=== PATIENT | female | born 1995 | race Caucasian/White ===

== ENCOUNTER 2019-08-07 13:23 | Outpatient (RCR) | payer BC, SELFPAY ==
--- NOTE | 2019-08-07 13:30 | PC.NURSE ---
IN 1250 OUT 1320 HISTORY: Pt. delivered at 39 weeks. had no complications after delivery. Mother had no complications after delivery. Infant is now 6 days old. Infant appears to be well cared for. has been seen by ICP as scheduled. Infant last seen by ICP at 1 week. Mother reports: She did not want to breastfeed while in the hospital. Mother's milk has now come in and mother has been attempting infant to breast with pain. Mother will pump 2-3 oz every three hours, and does not want to continue to pump and bottle feed. Mother wishes: to breastfeed. Currently at 6 wets per day and 2-3 yellow seedy stools per day. weight: 8#3 Discharge weight: 7#13 Last Weight: 7#6 Pre feeding weight: 3368 Post feeding weight: 3386 in 10 minutes full, mother bottle fed 3 oz before appointment. OBSERVATION: Reviewed feeding cues, frequencies, duration of feedings, feeding elimination flow sheet, and signs of adequate intake. Demonstrated stimulation techniques to wake infant for feeding. Requested mother put infant to breast has she has been at home. Mother used cradle allowing to find nipple and latch shallow. Assisted with to breast. Reviewed positioning/alignment in cross cradle, holding breast in U hold and guided asymmetrical latch on. Discussed rational for each. was able to latch correctly with first attempt. nursed eagerly, with steady draws and frequent swallowing noted. Reviewed signs of a correct latch, effective nursing and suck swallow ratio. Infant was able to maintain latch without discomfort to mother. Nipple care reviewed. Demonstrated how to adjust latch more deeply while infant is feeding. Reviewed football positioning/and C hold. PLAN: Mother will follow above feeding plan using techniques for deeper latch. Mother will put to breast each feeding and offer supplements for the next few feedings. Discussed when to decrease supplementation and when to discontinue. Stressed to feed on demand and supplement as needed, and keep accurate records of output. Mother will call with further questions or concerns.
== END 2019-10-16 10:43 | disposition home or self-care (01) ==
LOC: ANHOBOP 13:23
PROVIDERS: PCP Emergency Medicine; Visit Provider Pediatrics
DX: Z39.1 Encounter for care and examination of lactating mother (principal)
CPT/HCPCS: 99212; G0463

== ENCOUNTER 2021-11-25 16:21 | Outpatient (CLI) | payer BC, SELFPAY ==
[2021-11-25 17:10] LABS: Beta HCG Quantitative 3.34 mIU/ML
== END 2021-11-25 16:22 | disposition home or self-care (01) ==
PROVIDERS: PCP Emergency Medicine; Visit Provider Advanced Practice Midwife
DX: O20.0 Threatened abortion (principal)
CPT/HCPCS: 36415; 84702

== ENCOUNTER 2021-11-26 13:33 | Emergency (ER) | payer BC, SELFPAY ==
--- NOTE | ~2021-11-26 | US_ITS ---
EXAMINATION: US OB <=14 wk fetus w TV INDICATION: 5 weeks , bleeding TECHNIQUE: Sonography of the pelvis was performed by transabdominal and transvaginal techniques. COMPARISON: None. RESULT: Uterus: - Orientation: Anteverted - Size: 8.9 x 3.6 x 4.9 cm - Myometrium: homogeneous echogenicity Gestation: - Intrauterine gestational sac: Not seen - Embryo: Not seen Right ovary: - Size : 2.6 x 1.4 x 1.7 cm - Normal sonographic appearance with physiologic follicles. Left ovary: - Size: 2.1 x 1.2 x 2.2 cm - Normal sonographic appearance with physiologic follicles. Pelvis free fluid: None. IMPRESSION: No visible intrauterine gestational sac, which may be normal in early . Spontaneous and ectopic are not excluded. Serial beta hCGs are recommended. Reviewed, dictated and finalized at location K.
[2021-11-26 13:36] VITALS: BP 127/70; PULSE 68; RESP 16; TEMP 36.4; O2SAT 100
[2021-11-26 14:16] LABS: Basophils Absolute Auto 0.1 K/mm3 (0.0-0.1); Basophils Percent Auto 0.5 % (0.2-1.2); Eosinophils Absolute Auto 0.5 K/mm3 (0-0.3); Eosinophils Percent Auto 4.6 % (0-4.4); Hematocrit 42.2 % (37.0-47.0); Hemoglobin 13.5 g/dL (12.0-15.0); Immature Granulocyte Absolute 0.02 K/mm3 (0.00-0.031); Immature Granulocyte Percent A 0.2 % (0-0.5); Lymphocytes Absolute Auto 3.43 K/mm3 (0.9-3.2); Lymphocytes Percent Auto 31.2 % (18.3-44.2); Mean Corpuscular Hemoglobin 26.8 pg (26-34); Mean Corpuscular Volume 83.9 fl (80-100); Monocytes Absolute Auto 0.6 K/mm3 (0.1-0.6); Monocytes Percent Auto 5.2 % (2.6-8.5); Neutrophils Absolute Auto 6.4 K/mm3 (1.3-6.7); Neutrophils Percent Auto 58.3 % (45.5-73.1); Platelet Count Result 272 k/mm3 (150-375); Red Blood Count 5.03 M/mm3 (4.2-5.4); Red Cell Distribution Width 14.2 % (11.5-14.5)
--- NOTE | 2021-11-26 14:35 | ED.PREGNANCY ---
HPI - General Chief complaint: Vaginal Bleeding <Archana Aguilar PA-C - Last Filed: 11/26/21 15:44> Stated complaint: vaginal bleeding <Archana Aguilar PA-C - Last Filed: 11/26/21 15:44> Time Seen by Provider: 11/26/21 13:47 <Archana Aguilar PA-C - Last Filed: 11/26/21 15:44> Source: patient <KIA Millan Last Filed: 11/26/21 15:44> Mode of arrival: ambulatory <Archana Aguilar PA-C - Last Filed: 11/26/21 15:44> Limitations: no limitations <Archana Aguilar PA-C - Last Filed: 11/26/21 15:44> History of Present Illness HPI Narrative: This is a 26 year old, , about 5 weeks , that presents to the ER for vaginal bleeding. Ongoing since yesterday. Reports bleeding worsened today and she became a little dizzy, which prompted her to be seen. Her OB is Dr. Landon. Denies fever, vomiting or dysuria. <Archana Aguilar PA-C - Last Filed: 11/26/21 15:44> Related Data Home medications: Home Medications Medication Instructions Recorded Confirmed No Home Medications 08/01/19 08/01/19 <Archana Aguilar PA-C - Last Filed: 11/26/21 15:44> Allergies/Adverse reactions: Allergies Allergy/AdvReac Type Severity Reaction Status Date / Time No Known Allergies Allergy Unknown Unverified 11/26/21 14:01 <Archana Aguilar PA-C - Last Filed: 11/26/21 15:44> Review of Systems Review of Systems: CONSTITUTIONAL: Denies fever GASTROINTESTINAL: Reports pelvic cramping. Denies nausea, vomiting GENITOURINARY: Denies dysuria or hematuria. <Archana Aguilar PA-C - Last Filed: 11/26/21 15:44> All systems reviewed & are unremarkable except as noted in HPI and below <KIA Millan Last Filed: 11/26/21 15:44> [facility] Past Medical History Medical History: Medical History (Updated 11/26/21 @ 15:20 by Archana Aguilar PA-C) No active medical problems <Archana Aguilar PA-C - Last Filed: 11/26/21 15:44> Social History Social History: Social History Smoking status: Never smoker Second hand tobacco smoke exposure: No Gender identity (if verbalized by the patient): Female Spiritual care concerns: No <Archana Aguilar PA-C - Last Filed: 11/26/21 15:44> Exam Narrative: GENERAL: Well-appearing, well-nourished, and in no acute distress. HEAD: Normocephalic, atraumatic. EYES: EOMI. CHEST: Clear to auscultation. No respiratory distress. No wheezes rales or rhonchi HEART: Regular rate and rhythm. No murmur heard. Normal peripheral pulses. ABDOMEN: Soft, nontender, nondistended, normal active bowel sounds. EXTREMITIES: Normal range of motion. No edema. SKIN: Warm, dry, no rash. NEURO: No focal deficits. Alert and oriented x3. PSYCH: Normal mood and affect PELVIC: Normal external genitalia. Normal appearing cervix. Small amount of dark red blood in the vaginal vault <Archana Aguilar PA-C - Last Filed: 11/26/21 15:44> Course LINE SERVER/PA Physician Supervision For this patient encounter, I reviewed the LINE SERVER or PA documentation, treatment plan, and medical decision making <Dionicio Chavez MD - Last Filed: 11/26/21 16:00> Consultations Consultation #1: Spoke with Dr. Landon about patient and workup who will follow up in clinic <Archana Aguilar PA-C - Last Filed: 11/26/21 15:44> Date: 11/26/21 <Archana Aguilar PA-C - Last Filed: 11/26/21 15:44> Time: 15:30 <Archana Aguilar PA-C - Last Filed: 11/26/21 15:44> Vital Signs Vital signs: Vital Signs Temperature 97.6 F 11/26/21 13:36 Pulse Rate 68 11/26/21 13:36 Respiratory Rate 16 11/26/21 13:36 Blood Pressure 127/70 11/26/21 13:36 Pulse Oximetry 100 04/30/22 13:36 Temperature 97.6 F 11/26/21 13:36 Pulse Rate 65 11/26/21 15:55 Respiratory Rate 16 11/26/21 15:55 Blood Pressure 128/74 11/26/21 15:55 Pulse Oximetry 100 11/26/21 15:55 <Archana Aguilar PA-C - Last Filed: 11/26/21 15:44> Vital Signs Temper
[2021-11-26 14:43] LABS: Beta HCG Quantitative < 2.39 mIU/ML
[2021-11-26 15:55] VITALS: BP 128/74; PULSE 65; RESP 16; O2SAT 100
== END 2021-11-26 15:56 | disposition home or self-care (01) ==
PROVIDERS: Physician Assistant; Emergency Provider Emergency Medicine; PCP Emergency Medicine
DX: O03.9 Complete or unspecified spontaneous abortion without complication (principal)
CPT/HCPCS: 36415; 76801; 76817; 81025; 84702; 85025; 85461; 99284

== ENCOUNTER 2022-08-19 13:13 | Emergency (ER) | payer BC, SELFPAY ==
--- NOTE | 2022-08-19 16:14 | PC.NURSE ---
LWBS D/T WAIT TIME
== END 2022-08-19 16:28 | disposition left against medical advice (07) ==
PROVIDERS: PCP Emergency Medicine
DX: Z53.21 Procedure and treatment not carried out due to patient leaving prior to being seen by health care provider (principal)
CPT/HCPCS: 99199

== ENCOUNTER 2022-08-19 18:10 | Emergency (ER) | payer BC, SELFPAY ==
[2022-08-19 18:32] VITALS: BP 131/87; PULSE 89; RESP 18; TEMP 36.7; O2SAT 100
--- NOTE | 2022-08-19 20:59 | PC.NURSE ---
Patient approached the nurses station and informed typewriter aligner that she did not want to wait anymore. Patient was alert and ambulatory upon leaving the ED.
== END 2022-08-19 20:59 | disposition left against medical advice (07) ==
PROVIDERS: PCP Emergency Medicine
DX: Z53.21 Procedure and treatment not carried out due to patient leaving prior to being seen by health care provider (principal)
CPT/HCPCS: 99199

== ENCOUNTER → 2022-08-23 10:22 | Outpatient (CLI) | payer BC, SELFPAY ==
--- NOTE | ~2022-08-23 | CT_ITS ---
EXAMINATION: CT brain wo/w con DATE: 08/23/2022 10:55 INDICATION: Dizziness and giddiness. Headache. TECHNIQUE: Computed tomography (CT) of the head was performed without and with 100 mL Omnipaque 350 i ntravenous contrast. The mA was adjusted according to patient size. Iterative reconstruction techniqu e was employed. The dose-length product was 1199.14 mGy-cm. COMPARISON: None FINDINGS: There is no intracranial hemorrhage, acute infarction, or abnormal intracranial mass lesion . The ventricles are normal in size. The paranasal sinuses are clear. The orbits are normal. The mast oid air cells are normal. IMPRESSION: 1. Normal brain. Reviewed, dictated and finalized at location A. ERING FILAMENT MACHINE OPERATOR IMPRESSION: 1. Normal brain.
== END ==
PROVIDERS: PCP Internal Medicine; Visit Provider Internal Medicine
DX: R42 Dizziness and giddiness (principal)
CPT/HCPCS: 70470; Q9967